=== PATIENT | female | born 1950 | race Caucasian/White ===

== ENCOUNTER 2024-04-02 06:27 | Observation (INO) ==
--- NOTE | 2024-03-08 16:23 | PAT Medication Instructions ---
Medication Instructions Date of Service March 08, 2024 Home Medications calcium 600 mg (as carbonate)-vitamin D3 10 mcg (400 unit) tablet (Calcium 600 + D(3)) 2 tab PO QAM DO NOT take the morning of surgery calcium 600 mg (as carbonate)-vitamin D3 10 mcg (400 unit) tablet (Calcium 600 + D(3)) 2 tab PO QAM MORNING OF SURGERY: NOTHING TO EAT OR DRINK AFTER MIDNIGHT Other Notes If you have any questions please call us at [phone] or [phone] or [phone] or [phone]
--- NOTE | 2024-03-16 14:46 | Anesthesiology Consultation ---
Date of Service March 16, 2024 Assessment & Plan (1) Encounter for pre-operative examination: Chart Review Chart Review: Acceptable Risk for Surgery and Patient seen in Pre Admission Testing Patient requesting to keep dentures as long as possible pre op and get dentures put back in as soon as possible post op Pt currently scheduled as 23 hours observation. If surgeon decides to change patient to Same Day Joint, patient would be acceptable risk for TKA, pending patient is motivated, has good support and surgeon's office completes [facility] Program preop requirements. Per PAT appt on 03/16/24, no recent illness/disease exposures, illness related symptoms, or recent illness/disease positive tests. Will leave to surgeon's discretion if preop Covid testing needed Teaching & Discussion Pre-Anesthesia Teaching/Discussion Notes: Instructed NPO after midnight before surgery,except medications with 15 cc of water. Medication instructions provided according to the PAT guidelines. History Surgery Operation Date: 04/02/24 12:00 Proposed Procedures p Right Total Knee Arthroplasty - Tye Sloan DO Height/Weight Height: 5 ft 2 in Weight: 73.4 kg Allergies Allergy/AdvReac Type Severity Reaction Status Date / Time No Known Allergies Allergy Verified 03/08/24 15:36 Medications Home Medications Medication Instructions Recorded Confirmed Last Taken calcium 600 mg (as 2 tab PO QAM 03/08/24 03/08/24 Unknown carbonate)-vitamin D3 10 mcg (400 unit) tablet (Calcium 600 + D(3)) Past Medical History Medical History (Updated 03/16/24 @ 14:59 by Alesia Blevins PA-C) Osteoarthritis of right knee Snoring - Hx snoring- hx of sleep study a "very long time ago"- did show mild sleep apnea - never followed up Exercise / Class Metabolic Activity II 4-5 Yardwork/Stairs/Walk up hill (one flight of stairs - no chest pain or SOB) Past Surgical History Surgical History Hx of LASIK Bilateral Hx of wisdom tooth extraction Past Anesthesia History No Hx of Anesthesia Complications and No Family Hx of Anesthesia Complications History of PONV No Hx of PONV and No Hx of Motion Sickness Social History Smoking Status: Never smoker Do You Dip or Chew Tobacco: No Hx Alcohol Use: Yes Alcohol type: wine alcohol intake frequency: a few times a week Hx Substance Use: No substance use type: does not use Review of Systems - Hx snoring- hx of sleep study a "very long time ago"- did show mild sleep apnea Patient denies chest pain, shortness of breath, dyspnea on exertion, reflux, cough, wheezing, palpitations. No hx of seizures, stroke, PA. No hx of blood clots or blood transfusions Physical Exam Vital Signs VITALS BP 152/80 P 81 TEMP 97.6 SP02 97% RESP 16 Constitutional no acute distress ENMT Mouth: + small oral opening; no TMJ clicking Thyromental Distance: < 3.5 Finger Breadths (3.0) Mallampati Class: III Partial dentures on top and bottom Neck neck extension not limited Respiratory normal respiratory effort; no respiratory distress Auscultation: lungs clear to auscultation bilaterally; no wheezes Cardiovascular Rate/Rhythm: regular rate and regular rhythm Heart Sounds: no murmur Vessels: no carotid bruit Musculoskeletal Spine: no pain with cervical ROM Extremities: extremities normal to inspection Psychiatric Orientation: alert Lab Results Anesthesia Preop Results Results Anesthesia Widget: WBC 6.44 K/ul (4.8-10.8) 03/16/24 Hgb 13.3 g/dl (12.0-16.0) 03/16/24 Hct 40.2 % (37.0-47.0) 03/16/24 Plt 219 K/uL (130-400) 03/16/24 Na 135 mmol/L (136-145) L 03/16/24 K 4.3 mmol/L (3.5-5.1) 03/16/24 Cl 99 mmol/L (98-107) 03/16/24 CO2 29 mmol/L (21-32) 03/16/24 BUN 13 mg/dl (6-23) 03/16/24 Creat 0.50 mg/dl (0.6-1.2) L 03/16/24 Glucose Level 107 mg/dl (70-99(Fasting)) H 03/16/24 PT 10.2 Seconds (9.0-12.0) 03/16/24 PTT 25 Seconds (21-31) 03/16/24 INR 0.9 (0.9-1.1) 03/16/24 Blood Type A Negative 03/16/24 Antibody Screen NEGATIVE 03/16/24 Testing Electrocardiogram Date: 03/16/24 Findings: + NSR @ (81bpm) Normal EKG per cardio Chest X-Ray Date: 03/16/24 Findings: + NAD FINDINGS: Heart size is normal. Sigmoidal thoracolumbar scoliosis. Atherosclerosis of the aorta. No pneumothorax, pleural effusion or airspace consolidation. Bones appear grossly intact
[~2024-04-02 06:27] MED LIST: ROPIVACAINE 0.5% 5 MG/ML 30 ML VIAL ONE
--- NOTE | 2024-04-02 06:34 | History & Physical Bridge Note ---
Date of Service April 02, 2024 History & Physical Bridge Note I have examined the patient, reviewed the History & Physical and in the interval since the performance of the History & Physical I have noted the following changes of clinical significance: no changes noted
[2024-04-02] MEDS: GABAPENTIN 300 MG CAP PO SCH (06:59)
[2024-04-02] MEDS: FAMOTIDINE 20 MG TAB PO SCH (06:59)
[2024-04-02] MEDS: LR 60ML/HR IV SCH (06:59)
[2024-04-02] MEDS: ACETAMINOPHEN 500 MG TAB PO SCH ×2 (06:59→14:35)
[2024-04-02] MEDS: dexAMETHasone**PF** 10 MG/ML VIAL IV SCH (07:15)
[2024-04-02] MEDS: LR 500ML BOLUS, THEN 15ML/HR IV SCH (07:16)
[2024-04-02] MEDS ORDERED: MIDAZOLAM HCL 1 MG/ML 2ML VIAL ONE (07:18)
[2024-04-02] MEDS ORDERED: PROPOFOL IV EMULSION 10 MG/ML 20 ML VIAL IV ONE (07:24)
[2024-04-02] MEDS ORDERED: ePHEDrine sulfate 50 MG/ML AMP IV PRN (07:38)
[2024-04-02] MEDS ORDERED: ONDANSETRON INJ 2 MG/ML 2 ML VIAL IV PRN ×2 (07:38→09:10)
[2024-04-02] MEDS ORDERED: ATROPINE SULFATE 0.1 MG/ML 10ML SYR IV PRN (07:38)
[2024-04-02] MEDS ORDERED: KETOROLAC 30 MG/ML VIAL IV PRN (07:38)
[2024-04-02] MEDS: TRANEXAMIC ACID 1,000 MG **IV Pre-op IV SCH (07:46)
[2024-04-02] MEDS: ceFAZolin 2000MG 2,000 MG/15 ML SYR IV SCH ×2 (08:04→16:47)
[2024-04-02] MEDS ORDERED: PHENYLEPHRINE 100MCG/ML 5ML SYR ONE (08:35)
[2024-04-02] MEDS ORDERED: ONDANSETRON INJ 2 MG/ML 2 ML VIAL ONE (08:37)
[2024-04-02] MEDS: ORTHO JOINT ANESTHETIC ONE (08:38)
[2024-04-02] MEDS: ROPIV 0.5% 246mg, Ketorolac 30mg, EPINEPHrine 0.5mg in NSS INFIL SCH (08:38)
[2024-04-02] MEDS: TRANEXAMIC ACID 1,000 MG **IV Intra-op IV SCH (09:06)
[2024-04-02] MEDS ORDERED: HYDROmorphone INJ 0.5 MG/0.5 ML SYR IV PRN (09:10)
[2024-04-02] MEDS ORDERED: diphenhydrAMINE Capsule 25 MG CAP PO PRN (09:10)
[2024-04-02] MEDS ORDERED: bisacodyL 10 MG SUPP PR PRN (09:10)
[2024-04-02] MEDS ORDERED: HYDROmorphone INJ 1 MG/ML SYRINGE IV PRN (09:10)
[2024-04-02] MEDS ORDERED: METOCLOPRAMIDE HCL INJ 5 MG/ML 2 ML VIAL IV PRN (09:10)
[2024-04-02] MEDS ORDERED: NALOXONE HCL 0.4 MG/1 ML VIAL/CARP IV PRN (09:10)
[2024-04-02] MEDS ORDERED: MAGNESIUM HYDROXIDE SUSP 30 ML UDC PO PRN (09:10)
--- NOTE | 2024-04-02 10:08 | XRay Report ---
XR knee RT 1 or 2V routine CLINICAL HISTORY: Postoperative evaluation. COMPARISON: Right knee radiographs November 04, 2023. MRI of the right knee November 15, 2023. FINDINGS: Alignment of the total right knee arthroplasty is anatomic. There is no periprosthetic fra cture or unexpected radiopaque foreign body. There are skin cristino. IMPRESSION: Expected findings following total right knee arthroplasty. ACT 112: Negative or not required by law. Electronically signed by: Hung Posey M.D. 04/02/2024 10:07 AM
[2024-04-02] MEDS: HYDROmorphone INJ 1 MG/ML SYRINGE IV PRN (12:00)
--- NOTE | 2024-04-02 13:36 | Anesthesiology Progress Note ---
Date of Service April 02, 2024 Anesthesia Post Procedure Vital Signs Vital Signs: Temp Pulse Pulse Resp BP Pulse Ox O2 Del Method 04/02/24 13:00 99 H 18 155/78 H 96 Room Air 04/02/24 12:30 100 H 16 146/72 H 95 Room Air 04/02/24 12:00 95 H 14 164/83 H 96 Room Air 04/02/24 11:30 73 16 155/71 H 97 Room Air 04/02/24 11:00 72 13 145/64 H 93 Room Air 04/02/24 10:45 71 12 144/67 H 95 Room Air 04/02/24 10:30 71 15 132/63 98 Room Air 04/02/24 10:20 69 12 125/79 98 Room Air 04/02/24 10:10 36.4 C L 67 12 131/70 97 Room Air 04/02/24 10:00 74 19 128/67 98 Room Air 04/02/24 09:50 76 15 114/66 96 Room Air 04/02/24 09:40 76 11 L 116/97 99 Room Air 04/02/24 09:33 36.5 C 87 18 124/52 L 97 Room Air 04/02/24 06:48 36.5 C 82 20 155/104 H 99 Room Air Pain Intensity Right Knee: Pain Intensity: 3 Transfer of Care Handoff Completed per policy Notes Mental Status: alert / awake / arousable Patient Amnestic to Procedure: Yes Nausea / Vomiting: adequately controlled Pain: adequately controlled Airway Patency, RR, SpO2: stable & adequate BP & HR: stable & adequate Hydration State: stable & adequate Neuraxial Anesthesia: was administered and sensory block is resolving Anesthetic Complications: no major complications apparent
[2024-04-02] MEDS: KETOROLAC TROMETHAMINE 15 MG/ML VIAL IV SCH (14:35)
--- NOTE | 2024-04-02 15:05 | Operative Report ---
PG Post Operative Report Pre & Post Diagnosis Operation Date: 04/02/24 08:00 Pre-Op Diagnosis: Right Knee Arthritis Post-Op Diagnosis: Right Knee Arthritis I identified the patient and participated in the time-out.: Yes Procedure Operation Date: 04/02/24 08:00 Actual Procedures p Right Total Knee Arthroplasty(Right) - Tye Sloan DO Surgeon Tye Sloan DO Button Clamper Cate Hercules PA-C Estimated Blood Loss 30 Findings Consistent with Post-Op Diagnosis Specimens Right femoral and tibial bone Description of Procedure Implants used: I used a Lavinia Persona total knee arthroplasty system with a size 6 standard CR femur, D tibia, 31 oval patella, and a size 12 medial congruent polyethylene bearing. All components were cemented in place with Biomet cement. Nadya arrived [facility] for the above procedure. She was seen in the preoperative holding area and the operative extremity was identified and signed. She was given a preoperative antibiotic, TXA, a spinal anesthetic and an adductor nerve block. She was taken back to the operating room and laid on the table in supine position. She was given basic sedation. The operative knee was then prepped and draped in sterile fashion. A timeout was done, and the patient and the operative extremity was properly identified. A midline incision was made directly over the patella. Dissection was taken down to the extensor mechanism. A subvastus arthrotomy was used. The medial retinaculum was released and the fat pad was mostly excised. The knee was flexed and the ACL, PCL, and meniscus were removed. A drill was sent down the center of the femoral canal followed by an intramedullary sumaya. Off that sumaya a distal femoral cutting block was placed. 9 mm was resected off the distal femur at 5 of valgus. A posterior referencing AP sizing guide was then placed on the distal femur. The femur measured to be a size 6. 2 drill holes were placed in 3 of external rotation. A 4-in-1 cutting block was then impacted into place. Anterior, posterior, and chamfer cuts were then made. The proximal tibia was then exposed. An external tibial alignment guide was placed. A tibial cut guide was then anchored in place and the proximal tibia was then resected. The posterior aspect of the knee was then opened up and any additional meniscus fragments and osteophytes were removed. The tibia measured to be a size D. The tibial plate was then placed in the appropriate rotation and the tibia was drilled and punched. Trial components were then placed. I used a size 12 medial congruent polyethylene insert. The knee was brought through a full range of motion and felt to be stable. The peg holes for the femoral component were then drilled. The patella was then everted and 9 mm was resected off the posterior aspect of the patella. The patella measured to be a size 31 oval. 3 peg holes were then drilled. A trial patella was placed. The knee was once again brought through a full range of motion and felt to be stable. Trial components were then removed. The surrounding soft tissues were injected with 100 cc of an orthopedic pain control cocktail. All components were then cemented into place with Biomet cement. The final polyethylene insert was then snapped into place. Once cement was dry the tourniquet was deflated. Hemostasis was obtained. A dilute betadyne lavage was then done for 3 minutes. The joint was then irrigated with normal saline solution. The subvastus arthrotomy was then closed with #1 Vicryl suture. The skin was closed with 2-0 Vicryl, 3-0V lock suture, and cristino. A soft compressive dressing was placed. She was then transferred to a hospital bed and taken to the postanesthesia care unit in stable condition. She tolerated the procedure well. Cate Hercules PA-C, was present for the entire procedure. He was critical for patient positioning, prepping, draping, retraction exposure, wound closure and application of sterile dressing. I attest to the content of the Intraoperative Record and any orders documented therein. Any exceptions are noted below.
[2024-04-02] MEDS: DOCUSATE SODIUM 100 MG CAP PO SCH (20:11)
[2024-04-02] MEDS: SENNA 8.6 MG TAB PO SCH (20:11)
--- NOTE | 2024-04-03 07:04 | Orthopedic Progress Note ---
Date of Service April 03, 2024 Assessment & Plan (1) Status post right knee replacement: Overall she is doing fairly well. She is not having much pain in the right knee. She will be seen by physical therapy today for ambulation and range of motion exercises. She is on aspirin for DVT prophylaxis. She can be discharged to home later today. The nursing staff can change her dressing after physical therapy. She will follow-up orthopedics in 2 weeks. Sánchez [place] was seen and examined at bedside this morning. Overall she is doing very well. She is not having much pain in the right knee. She has been up and ambulating to the bathroom. She has no complaints.. Review of Systems All systems reviewed & are unremarkable except as noted in HPI & below. Physical Exam On physical exam of the right knee, the dressing is clean and dry. Her leg is out full extension. She has active dorsiflexion plantarflexion of her right ankle.. Results & Data Results & Data Laboratory Results . Diagnostic Findings Postoperative x-rays of the right knee show the prosthesis to be in anatomic alignment without any evidence of fracture complication, or loosening.. PG Care Time/CCT Total # of Minutes Spent Total Time Spent with Patient: Total time spent is greater than 50% in coordination of care (as documented) at patient's floor/unit and/or counseling patient: Coding Level of Care Code 02726 Post Operative Follow-Up Diagnoses Status post right knee replacement Z96.651
--- NOTE | 2024-04-03 07:05 | Discharge Summary ---
Date of Service April 03, 2024 Principal Diagnosis Same as "Discharge Diagnosis" noted below under Discharge Instructions. Discharge Exam On physical exam of the right knee, the dressing is clean and dry. Her leg is out full extension. She has active dorsiflexion plantarflexion of her right ankle.. Discharge Data Procedures Performed Operation Date: 04/02/24 08:00 Actual Procedures p Right Total Knee Arthroplasty(Right) - Tye Sloan DO Ordered Studies 04/02/24 05:00 US - OR guided needle placemen Routine Hospital Course (1) Status post right knee replacement: On April 02, 2024 Nadya arrived at [facility] and underwent a right knee replacement without complication. She had a spinal anesthetic. Postoperatively she was started on aspirin for DVT prophylaxis and transferred to the general orthopedic floors. Her hospital course was uneventful. On postop day #1, her vital signs were stable and her pain was well-controlled. She was able to participate well with physical therapy doing ambulation and range of motion exercises. She was then discharged to home. She will follow-up orthopedics in 2 weeks. PG Care Time/CCT Total # of Minutes Spent Total Time Spent with Patient: Total time spent is greater than 50% in coordination of care (as documented) at patient's floor/unit and/or counseling patient: Discharge Plan Discharge Items Patient Disposition: Home - Self-Care Reason For Visit: Right Knee Arthritis Discharge Diagnosis: Right knee replacement Activity: Per Instructions section Non-emergency contact: Surgeon Call non-emergency contact if: your wound has increased redness and your wound has increased drainage Follow-up/Referrals: Zelda Seaman [Other] Diet: Regular Addtl Attending Provider Instructions: Activity and Therapy Recommendations: * If you are using [facility] then therapy will be provided at your home until they feel you have accomplished all of your goals. * If you are using [facility] then Physical Therapy will be provided until they feel you are ready to start Outpatient Physical Therapy. * If you are not using home therapy then Outpatient Physical Therapy should start about 3-5 days from your day of surgery. Therapy will last about 6-10 weeks * It is important not to put a pillow under your knee when you are relaxing or sleeping. It is just as important to make sure you are getting your knee perfectly straight as it is to regain your knee bend. * You were shown a series of exercises in the hospital. Do these exercises three times each day including the exercises you were shown in physical therapy. * Get up and walk several times each day. For the first four weeks, try not to s tand or walk for more than one hour at a time. If you do stand or walk for more than one hour, you will not hurt anything, but your leg will likely swell. * As you feel comfortable, you may change from the walker or crutches to a cane and then to independent walking. Medications: * Narcotic You will likely be sent home from the hospital with a prescription for the narcotic pain medication that worked best throughout your stay. * Cefadroxil -take the antibiotic twice a day for 10 days to help prevent infection. * Aspirin Most patients will be required to take Aspirin 81mg twice a day for 6 weeks after surgery. This is obtained [id number] and a prescription is not necessary. * Other medications may be prescribed for specific circumstances. If you have any questions, please call the office at . * Resume previous home medications unless otherwise instructed TEDs/Elastic Stockings: The white elastic stockings help limit swelling and prevent blood clots from forming in your legs.~ The more you wear them, the more they work. Wear them for six weeks. Dressing Care: The dressing can be changed after physical therapy on postop day #1. Daily dry dressing changes for a few days, especially if the incision is still draining some. If the incision is not draining then you may leave the cristino open to air. If there is a little bit of drainage or if the cristino are getting stuck on your clothing then cover the incision with a dry dressing. The cristino will be removed at your 2 week follow-up appointment. Showering: You may shower 5 days from the day of surgery as long as the incision is no longer draining. You may shower with the cristino exposed. Let soapy water run over the cristino and pat them dry. Do not scrub or soak the incision. Diet: You may resume your previous diet. Things To Watch For: * Drainage from the incision site that occurs more than one week after your surgery. * Increased redness at the incision site. * Fever above 102 degrees Fahrenheit. * Unusual chest pain or shortness of breath. * Call [facility] at with any of the above problems Follow-Up Visit: Follow-up with Dr. Sloan's PA (Tye Samuels) 2-3 weeks after your day of surgery. He will remove your cristino and answer any questions. If you have any additional questions or concerns, Dr Sloan is usually in the office at the same time and will be available An appointment was probably scheduled when you signed-up for surgery in the office. If you have any questions call Office Instructions: More detailed instructions as well as Frequently Asked Questions were provided in a folder by our office when you signed-up for surgery. Please review these instructions when you get home. If you have any further questions or concerns, please feel free to call the office at [phone] Pending Studies at Discharge: No Stand-Alone Forms: My [facility], Smoking Cessation Medications and DC Order Prescriptions: New oxycodone 5 mg Tablet 5 mg PO Q4H PRN (Reason: pain) Qty: 30 0RF cefadroxil 500 mg capsule 500 mg PO BID 10 Days Qty: 20 0RF aspirin 81 mg Tablet,Delayed Release (Dr/Ec) 81 mg PO BID 42 Days Qty: 84 0RF Continued calcium carbonate-vitamin D3 [Calcium 600 + D(3)] 600 mg-10 mcg (400 unit) Tablet 2 tab PO QAM Discharge Orders: Discharge Order (Routine); Ordered 04/03/24 Ordered By: Tye Sloan Admission Data Admit Date/Time: 04/02/24 09:10 Attending Provider: Tye Sloan Admit Provider: Tye Sloan Primary Care Provider: Zelda Seaman
[2024-04-03 07:33] VITALS: BP 156/81; PULSE 86; RESP 16; TEMP 98.1; O2SAT 94
[2024-04-03] MEDS: ASPIRIN 81 MG ECTAB PO SCH (07:48)
[2024-04-03] MEDS: dexAMETHasone 4 MG TAB PO SCH (07:48)
[2024-04-03] MEDS: CALCIUM 600MG + VIT D 400 IU TAB PO SCH (07:48)
[2024-04-03] MEDS: MULTIVITAMIN TAB PO SCH (07:48)
[2024-04-03] MEDS: oxyCODONE HCL IR 5 MG TAB (IMMEDIATE RELEASE) PO PRN (08:22)
== END 2024-04-03 11:37 | disposition home or self-care (01) ==
LOC: PACUINP 06:27 → ASU 06:27 → 3N 13:26